=== PATIENT | male | born 1995 | race Caucasian/White ===

== ENCOUNTER 2018-10-21 13:45 | Emergency (ER) | payer SELFPAY ==
[~2018-10-21] VITALS: Ht 190.5 cm; Wt 95.3 kg
[2018-10-21 14:08] VITALS: Ht 190.5 cm; Wt 95.3 kg
[2018-10-21 14:50] VITALS: BP 110/77
== END 2018-10-21 14:50 | disposition home or self-care (01) ==
LOC: ED 13:45
DX: G57.01 Lesion of sciatic nerve, right lower limb (principal)
CPT/HCPCS: J1885